=== PATIENT | female | born 1990 | race Two or more races ===

== ENCOUNTER 2025-01-05 20:44 | Emergency (ER) | payer OTHER ==
[~2025-01-05] VITALS: Ht 157.5 cm; Wt 53.5 kg
[2025-01-05] MEDS ORDERED: BISOPROLOL FUM2.5 MG (23:53)
[2025-01-05] MEDS ORDERED: NASAL MIST126 ML (23:53)
[2025-01-06] MEDS ORDERED: KETOROLAC TROMETHAMINE 30 MG VIAL IM STA (00:10)
[2025-01-06] MEDS ORDERED: CEFTRIAXONE SODIUM 2,000 MG VIAL IV STA (00:10)
[2025-01-06] MEDS ORDERED: DEXAMETHASONE SODIUM PHOSPHATE 4 MG/ML VIAL IM STA (00:11)
[2025-01-06] MEDS ORDERED: KETOROLAC TROMETHAMINE 30 MG VIAL ONE (00:51)
[2025-01-06] MEDS ORDERED: DEXAMETHASONE SODIUM PHOSPHATE 4 MG/ML VIAL ONE (00:51)
[2025-01-06] MEDS ORDERED: CEFTRIAXONE SODIUM 2,000 MG VIAL ONE (00:51)
[2025-01-06 01:18] LABS: BASO % 0.5 % (0.1-1.2); EOS # 0.15 (0.04-0.54); EOS % 1.6 % (0.7-7.0); LYMPH # 3.00 (1.18-3.74); LYMPH % 32.7 % (19.3-53.1); MEAN PLATELET VOLUME 9.10 fl (9.4-12.4); MONO # 0.56 (0.24-0.82); MONO % 6.1 % (4.7-12.5); NEUT # 5.39 (1.56-6.13); NEUT % 58.8 % (34.0-71.1); RED CELL DISTRIBUTION WIDTH 10.9 % (11.6-14.4)
[2025-01-06 01:39] LABS: INR 1.04
[2025-01-06 02:09] LABS: BUN CREA RATIO 13 (7.0-25.0); CREATININE SERUM 0.76 mg/dL (0.55-1.02); GFR 86.11; GLUCOSE FASTING 94 mg/dL (65-100); OSMOLALITY SERUM 282 MOSM/KG (275-295)
[2025-01-06 02:10] LABS: CKMB < 1.0 NG/ML (0.5-3.6)
[2025-01-06 05:37] LABS: COVID-19 AG NEGATIVE (NEGATIVE)
== END 2025-01-06 02:35 | disposition home or self-care (01) ==
LOC: ER 20:44
PROVIDERS: General Practice
DX: R50.9 Fever, unspecified (principal); R51.9 Headache, unspecified; Z20.822 Contact with and (suspected) exposure to COVID-19